=== PATIENT | female | born 1960 | race Asian ===

== ENCOUNTER 2018-10-01 14:21 | Emergency (ER) | payer OTHER ==
[2018-10-01 17:37] LABS: ADD MAN DIFF? NO
[2018-10-01 17:40] LABS: BASOPHIL # 0.1 10^3/ul (0.0-0.1); BASOPHILS % 0.8 % (0.0-2.0); EOSINOPHILS # 0.1 10^3/ul (0.0-0.5); EOSINOPHILS % 1.8 % (0.0-7.0); HEMATOCRIT 39.3 % (37.0-47.0); HEMOGLOBIN 12.8 g/dl (12.0-16.0); LYMPHOCYTES # 2.1 10^3/ul (0.8-2.9); LYMPHOCYTES % 27.5 % (15.0-51.0); MEAN CORPUSCULAR HEMOGLOBIN 29.6 pg (29.0-33.0); MEAN CORPUSCULAR HGB CONC 32.6 g/dl (32.0-37.0); MEAN CORPUSCULAR VOLUME 90.8 fl (82.0-101.0); MEAN PLATELET VOLUME 9.1 fl (7.4-10.4); MONOCYTE # 0.5 10^3/ul (0.3-0.9); MONOCYTES % 6.2 % (0.0-11.0); NEUTROPHIL # 4.8 10^3/ul (1.6-7.5); NEUTROPHILS % 63.3 % (39.0-77.0); PLATELET COUNT 355 10^3/UL (140-415); RED BLOOD COUNT 4.33 10^6/ul (4.20-5.40); RED CELL DISTRIBUTION WIDTH 12.7 % (11.5-14.5)
[2018-10-01 17:40] LABS: WHITE BLOOD COUNT 7.6 10^3/ul (4.8-10.8)
[2018-10-01 17:56] LABS: AMPHETAMINE/METHAMPHETAMINE NEGATIVE (NEGATIVE); BARBITURATES NEGATIVE (NEGATIVE); BENZODIAZEPINES NEGATIVE (NEGATIVE); CANNABINOIDS NEGATIVE (NEGATIVE); COCAINE NEGATIVE (NEGATIVE); OPIATES NEGATIVE (NEGATIVE)
[2018-10-01 18:00] LABS: ANION GAP 9 (5-13); BLOOD UREA NITROGEN 19 mg/dl (7-20); CALCIUM 9.6 mg/dl (8.4-10.2); CARBON DIOXIDE 27 mmol/L (21-31); CHLORIDE 106 mmol/L (97-110); Estimated GFR > 60 mL/min (>60); GLUCOSE 132 mg/dl (70-220); POTASSIUM 4.1 mmol/L (3.5-5.1); SODIUM 142 mmol/L (135-144)
[2018-10-01 18:09] LABS: TROPONIN-I < 0.012 ng/ml (0.000-0.120)
[2018-10-01 18:17] LABS: ETHANOL < 10.0 mg/dl (0-0)
== END 2018-10-01 20:15 | disposition home or self-care (01) ==
LOC: E/R 14:21
DX: R55 Syncope and collapse (principal); I10 Essential (primary) hypertension
CPT/HCPCS: 36415; 70450; 80048; 80307; 84484; 85025; 93005; 99285-25

== ENCOUNTER 2018-10-25 20:05 | Emergency (ER) | payer OTHER ==
[2018-10-25] MEDS: METHOCARBAMOL 500 MG TAB PO (22:43)
[2018-10-25] MEDS: ACETAMINOPHEN 325 MG TAB PO (22:43)
== END 2018-10-26 02:08 | disposition home or self-care (01) ==
LOC: FTE 10-26 02:08
DX: M25.562 Pain in left knee (principal); I10 Essential (primary) hypertension; M25.561 Pain in right knee
CPT/HCPCS: 71046; 73562-50; 99284-25

== ENCOUNTER 2018-11-20 08:28 | Day surgery (SDC) | payer OTHER ==
[2018-11-20] MEDS ORDERED: MIDAZOLAM 1 MG/ML 2 ML INJ ×2 (11:25)
[2018-11-20] MEDS ORDERED: FENTAnyl 50 MCG/ML VIAL (11:25)
== END 2018-11-20 13:22 | disposition home or self-care (01) ==
LOC: GIL 08:28
DX: Z12.11 Encounter for screening for malignant neoplasm of colon (principal); K64.8 Other hemorrhoids; I10 Essential (primary) hypertension
CPT/HCPCS: 45378